=== PATIENT | male | born 1960 | race African-American/Black ===

== ENCOUNTER 2017-09-04 11:32 | Inpatient (IN) | payer MEDICAID ==
[~2017-09-04] VITALS: Ht 195.6 cm; Wt 138.3 kg
[~2017-09-04 11:32] MED LIST: IOHEXOL-300 100 ML BOTTLE ONE; SODIUM CHLORIDE 0.9% 10ML VIAL ONE
[2017-09-04] MEDS ORDERED: MORPHINE SULFATE 4 MG/ML CPJ (NOT FOR IM USE) IV STA (11:41)
[2017-09-04] MEDS ORDERED: LORAZEPAM 2MG/ML CPJ IV ONE (11:45)
[2017-09-04 12:37] LABS: BASOPHILS % 0.6 % (0.0-2.0); EOSINOPHILS % 2.8 % (0.0-5.0); HEMATOCRIT. 28.9 % (42.0-52.0); HEMOGLOBIN. 9.6 g/dL (14.0-18.0); MEAN CORPUSCULAR HEMOGLOBIN 33.9 pg (28.0-32.0); MEAN CORPUSCULAR VOLUME 102.4 fL (80.0-94.0); MONOCYTES % 4.3 % (2.0-8.0); NEUTROPHILS % 74.3 % (40.0-76.0); RED BLOOD CELL COUNT 2.82 mill/uL (4.7-6.1); RED CELL DISTRIBUTION WIDTH 14.2 % (11.6-14.6)
[2017-09-04 12:43] LABS: INR 1.1; PROTHROMBIN TIME 11.2 sec (9.4-11.6)
[2017-09-04 12:53] LABS: CARBON DIOXIDE 22 mEq/L (21-32); CHLORIDE 106 mEq/L (98-107); TROPONIN I < 0.02 ng/mL (0.00-0.04)
[2017-09-04 13:27] LABS: PLATELET 227 x1000/uL (130-400)
[2017-09-04] MEDS ORDERED: KETOROLAC 30MG/ML VIAL IV ONE (15:15)
[2017-09-04] MEDS ORDERED: FENTANYL CITRATE/PF 50MCG/ML 2ML VIAL IV ONE (15:15)
[2017-09-04] MEDS ORDERED: SODIUM CHLORIDE 0.9% 1,000 ML IV ONE (15:30)
[2017-09-04 17:22] VITALS: BP 130/77
[2017-09-04] MEDS ORDERED: BUPR-102 PO (18:05)
[2017-09-04] MEDS ORDERED: ACYC200C PO (18:05)
[2017-09-04] MEDS ORDERED: GUAIFENESIN 200MG/10ML SUGAR FREE UDC PO PRN (19:00)
[2017-09-04] MEDS ORDERED: IPRATROPIUM/ALBUTEROL 0.5-3(2.5)MG/3ML NEB INH PRN (19:00)
[2017-09-04] MEDS ORDERED: MAGNESIUM/ALUMINUM HYDROXIDE/SIMETHICONE 30ML UDC PO PRN (19:00)
[2017-09-04] MEDS ORDERED: ACETAMINOPHEN 325MG TABLET PO PRN (19:00)
[2017-09-04] MEDS ORDERED: HYDROCODONE/ACETAMINOPHEN 5/325MG TABLET PO PRN (19:00)
[2017-09-04] MEDS ORDERED: ONDANSETRON HCL 4MG/2ML VIAL IV PRN (19:00)
[2017-09-04] MEDS ORDERED: CLONIDINE 0.1MG TABLET PO PRN (19:00)
[2017-09-04 20:00] VITALS: BP 120/63
[2017-09-04] MEDS: SODIUM CHLORIDE 0.9% INJ 3ML FLUSH IVF SCH (21:28)
[2017-09-05] VITALS: BP 126/63
[2017-09-05] MEDS: HYDROCODONE/ACETAMINOPHEN 10/325MG TABLET PO PRN ×3 (03:04→15:25)
[2017-09-05 04:00] VITALS: BP 130/71
[2017-09-05 08:00] VITALS: BP 157/104
[2017-09-05 12:00] VITALS: BP 129/76
[2017-09-05 12:36] LABS: CLARITY URINE CLEAR (CLEAR); COLOR URINE DARK YELLOW (YELLOW); GLUCOSE URINE NEGATIVE (NEGATIVE); KETONES URINE NEGATIVE (NEGATIVE); LEUKOCYTE ESTERASE URINE NEGATIVE (NEGATIVE); NITRITE URINE NEGATIVE (NEGATIVE); OCCULT BLOOD URINE NEGATIVE (NEGATIVE); PROTEIN URINE NEGATIVE (NEGATIVE); SPECIFIC GRAVITY URINE 1.052 (1.005-1.030)
[2017-09-05 13:06] LABS: *AMPHETAMINES SCREEN URINE NEGATIVE (NEGATIVE); *BARBITURATES SCREEN URINE NEGATIVE (NEGATIVE); *BENZODIAZEPINES SCREEN URINE NEGATIVE (NEGATIVE); *COCAINE SCREEN URINE PRESUMTIVE POSITIVE (NEGATIVE); CANNABINOID URINE SCREEN PRESUMTIVE POSITIVE (NEGATIVE); METHADONE URINE SCREEN NEGATIVE (NEGATIVE); OPIATES URINE SCREEN PRESUMTIVE POSITIVE (NEGATIVE); PHENCYCLIDINE URINE SCREEN NEGATIVE (NEGATIVE)
[2017-09-05] MEDS: SODIUM CHLORIDE 0.9% INJ 3ML FLUSH IVF SCH ×2 (13:17→21:57)
[2017-09-05 16:00] VITALS: BP 150/91
[2017-09-05 20:00] VITALS: BP 146/75
[2017-09-05] MEDS: MORPHINE SULFATE 30MG TABLET SR PO SCH (20:41)
[2017-09-05] MEDS: DIPHENHYDRAMINE 50MG/ML VIAL IV PRN (21:56)
[2017-09-06] VITALS: BP 127/82
[2017-09-06 04:00] VITALS: BP 131/76
[2017-09-06] MEDS: SODIUM CHLORIDE 0.9% INJ 3ML FLUSH IVF SCH ×3 (05:29→21:29)
[2017-09-06 08:00] VITALS: BP 139/77
[2017-09-06] MEDS: MORPHINE SULFATE 30MG TABLET SR PO SCH (08:14)
[2017-09-06 12:00] VITALS: BP 135/83
[2017-09-06] MEDS ORDERED: MORPHINE SULFATE 15MG TABLET SR PO NR (12:15)
[2017-09-06 16:00] VITALS: BP 130/70
[2017-09-06 20:00] VITALS: BP 160/80
[2017-09-06] MEDS: DIPHENHYDRAMINE 50MG/ML VIAL IV PRN (20:29)
[2017-09-06] MEDS ORDERED: HYDROCODONE/ACETAMINOPHEN 10/325MG TABLET PO PRN (20:45)
[2017-09-06] MEDS ORDERED: MORPHINE SULFATE 15MG TABLET SR PO SCH (21:00)
[2017-09-06] MEDS ORDERED: MORPHINE SULFATE 30MG TABLET SR PO SCH (21:00)
[2017-09-06] MEDS: QUETIAPINE FUMARATE 100MG TABLET PO SCH (21:26)
[2017-09-07] VITALS: BP 116/54
[2017-09-07 04:00] VITALS: BP 129/70
[2017-09-07] MEDS: SODIUM CHLORIDE 0.9% INJ 3ML FLUSH IVF SCH ×2 (05:48→13:25)
[2017-09-07 08:00] VITALS: BP 129/78
[2017-09-07] MEDS: QUETIAPINE FUMARATE 100MG TABLET PO SCH (08:50)
[2017-09-07] MEDS ORDERED: MORPHINE SULFATE 30MG TABLET SR PO SCH (09:00)
[2017-09-07 12:00] VITALS: BP 140/78
== END 2017-09-07 15:45 | disposition left against medical advice (07) | DRG 861 ==
LOC: ER 12:16 → 6EST 15:11 → EDBEDREQSVC 15:12 → EDBEDREQ 15:12 → EDBEDREQTM 15:12 → ENRESERV 15:24
PROVIDERS: ADMIT Internal Medicine; ATTEND Internal Medicine
DX: G89.3 Neoplasm related pain (acute) (chronic) (principal); C90.00 Multiple myeloma not having achieved remission; C79.51 Secondary malignant neoplasm of bone; E46 Unspecified protein-calorie malnutrition; C79.89 Secondary malignant neoplasm of other specified sites; D64.9 Anemia, unspecified; F17.200 Nicotine dependence, unspecified, uncomplicated; Z53.21 Procedure and treatment not carried out due to patient leaving prior to being seen by health care provider; F32.9 Major depressive disorder, single episode, unspecified; F41.9 Anxiety disorder, unspecified; I10 Essential (primary) hypertension; Z59.0 Homelessness; Z82.49 Family history of ischemic heart disease and other diseases of the circulatory system; Z83.3 Family history of diabetes mellitus; Z68.36 Body mass index [BMI] 36.0-36.9, adult
CPT/HCPCS: 36415; 71010; 72100; 72170; 74177; 80053; 80305; 81003; 84484; 85025; 85610; 93005; 96374; 96375; 97162; 99285; A4216; J1200; J1885; J2060; J2270; J3010; J7030; Q9967

== ENCOUNTER 2021-02-14 12:33 | Emergency (ER) | payer MEDICAID ==
[~2021-02-14] VITALS: Ht 195.6 cm; Wt 141.0 kg
[~2021-02-14 12:33] MED LIST changes: +ACYC200C PO; +BUPR-102 PO; -IOHEXOL-300 100 ML BOTTLE ONE; -SODIUM CHLORIDE 0.9% 10ML VIAL ONE
[2021-02-14] MEDS ORDERED: MORPHINE SULFATE 10 MG/ML CPJ IM ONE (13:15)
[2021-02-14] MEDS ORDERED: IBUP-2029 MT (15:40)
[2021-02-14 16:24] VITALS: BP 138/74
== END 2021-02-14 17:00 | disposition home or self-care (01) ==
LOC: ER 12:33
DX: S70.02XA Contusion of left hip, initial encounter (principal); S70.01XA Contusion of right hip, initial encounter; I10 Essential (primary) hypertension; Z98.890 Other specified postprocedural states; W18.30XA Fall on same level, unspecified, initial encounter; Y93.89 Activity, other specified; Y92.89 Other specified places as the place of occurrence of the external cause; Y99.8 Other external cause status
CPT/HCPCS: 73521; 96372; 99283; J2270